=== PATIENT | male | born 1960 | race Caucasian/White ===

== ENCOUNTER 2023-11-08 08:49 | Outpatient (AMB) | payer MEDICARE, OTHER, SELFPAY ==
--- NOTE | 2023-11-08 09:00 | A.OFFVIS_ITS ---
Intake Vital Signs 11/08/23 09:17 Height 5 ft 9 in Weight 263 lb BMI 38.8 BP 140/80 H Blood Pressure Location Lt brachial Position Sitting Pulse 69 Pulse Source Pulse Oximeter Pulse Oximetry (%) 97 Oxygen Delivery Method Room Air Intake Visit Reasons: ENP-LORRAINE/Snoring/day time fatigue Intake Note: Patient presents for LORRAINE. not been able to sleep all night Allergies No Known Allergies Allergy (Verified 11/08/23 09:07) HPI HPI Comments History of Present Illness Details 62 y/o male patient presents for new in- person visit for sleep consultation. Pt reports difficulty falling asleep and staying sleep, only can sleep 4 hrs. Pt also reports loud snoring, and difficulty breathing, and nocturia. He had a nasal surgery, but not sure what he had done. Since the surgery, he has difficulty breathing when he sleep. He can breathe better when he laying on his left side. He quit smoking 6 years ago. Sleep questionnaire: Have you ever been diagnosed with a sleep disorder? No. Have you ever had a sleep study in the past? No. Have you ever been treated for a sleep disorder? No. Do you take medications for a sleep disorder? Trazodone 150 mg, but not use every night. Do you snore? Yes. Do you wake up gasping at night? No. Do you have episodes of apneas? Don't know. If yes, are they witnessed? No, sleeps alone. Do you have episodes of nocturnal chest pain or dyspnea?No. Do you have difficulty initiating sleep? Yes. Do you have difficulty maintaining sleep? Yes. Do you wake up tired? Always. Do you have headaches upon awakening? No. Do you wake up with dry mouth or throat? Yes. Do you have GERD? No. Do you have nocturia? Yes, 4-5 times at night. Do you have nocturnal leg cramps? Yes. Do you have symptoms of restless legs? Yes. Do you act out your dreams? No. Sleep hygiene questionnaire: What is your usual sleep routine? Very irregular. Usual bedtime is at ; Usual wake up time is at . Do you take naps? Yes. Is your sleep environment cool, dark, and quiet? Yes. Do you exercise? No. Do you take caffeine or other stimulants? 3 cups of coffee in the morning. Do you use electronics in bed? No. What is your work schedule? Retired. Hypersomnolence questionnaire: Do you have daytime tiredness or fatigue? Yes. Do you easily fall asleep when inactive? Yes. Have you ever had episodes of sudden weakness? No. Have you ever had episodes of sudden weakness associated with strong emotions? No. PFSH Surgical History (Updated 11/08/23 @ 09:15 by Chelsea Howell CMA) Previous back surgery Family History (Updated 11/08/23 @ 09:54 by Chelsea Howell CMA) Father Heart disease Mother Cancer of lung Brother Overdose Social History (Updated 11/08/23 @ 09:56 by Chelsea Howell CMA) Household Members: None Housing: Apartment Alcohol intake: current Comment: 1x a month Patient Tobacco Use Status: Former Tobacco user Years Smoked: 30 years Review of Systems Const All systems reviewed & are unremarkable except as noted in HPI and below Physical Exam Vital Signs: Last Vital Signs Pulse 69 11/08/23 09:17 BP 140/80 H 11/08/23 09:17 Pulse Ox 97 11/08/23 09:17 Oxygen Delivery Method Room Air 11/08/23 09:17 BMI result Body Mass Index 38.8 Const General: cooperative Nutritional Appearance: obese Orientation/consciousness: patient oriented x3 Neck Neck: Yes full ROM and Yes supple Resp Effort & Inspection: normal respiratory effort and able to speak in complete sentences Neuro General: patient oriented x3, gait normal and moves all extremities Cranial nerves: Yes CN's II-XII intact bilaterally Gait exam (Neuro): Normal gait present Motor exam (neuro): 5/5 motor strength present throughout Psych Appearance: grossly normal Mental Status: mental status grossly normal Affect: normal affect Attitude: cooperative Assessment & Plan Assessment & Plan (1) Loud snoring: Code(s): R06.83 - Snoring (2) Daytime sleepiness: Code(s): R40.0 - Somnolence Plan Pt is advised to undergo home sleep study to assess for sleep apnea. Will f/u with pt after study to discuss results and appropriate treatment options. Sleep hygiene education provided, having routine sleep schedule and also increase daily physical activities. Pt to call with any worsening concerns or questions. Orders: Orders RT home sleep study 11/08/23 R06.83 - Snoring, R40.0 - Somnolence Coding Level of Care Code New Pt Level 3 (29146) Diagnoses Loud snoring R06.83 Daytime sleepiness R40.0
[2023-11-08 09:17] VITALS: BP 140/80; PULSE 69; O2SAT 97; BMI 38.8
== END 2023-11-08 09:40 | disposition home or self-care (01) ==
PROVIDERS: PCP Physician Assistant Medical; Visit Provider Nurse Practitioner Family
DX: R06.83 Snoring (principal); R40.0 Somnolence
CPT/HCPCS: 99203

== ENCOUNTER → 2023-11-08 08:49 | Outpatient (BNVA) | payer MEDICARE, OTHER, SELFPAY | PROVIDERS: PCP Physician Assistant Medical; Visit Provider Nurse Practitioner Family | DX: R06.83 Snoring (principal); R40.0 Somnolence | CPT/HCPCS: 99202 ==

== ENCOUNTER → 2023-12-18 07:33 | Outpatient (REF) | payer MEDICARE, OTHER, SELFPAY | LOC: HO.SL 07:33 | PROVIDERS: PCP Physician Assistant Medical; Visit Provider Nurse Practitioner Family | DX: G47.33 Obstructive sleep apnea (adult) (pediatric) (principal); R06.83 Snoring; R40.0 Somnolence | CPT/HCPCS: 95806 ==

== ENCOUNTER → 2023-12-18 08:02 | Outpatient (BNV) | payer MEDICARE, OTHER, SELFPAY | PROVIDERS: PCP Physician Assistant Medical; Visit Provider Psychiatry & Neurology Neurology | DX: G47.33 Obstructive sleep apnea (adult) (pediatric) (principal) | CPT/HCPCS: 95806 ==

== ENCOUNTER 2024-05-20 09:22 | Outpatient (AMB) | payer MEDICARE, OTHER, SELFPAY ==
[2024-05-20 09:32] VITALS: BMI 35.9
--- NOTE | 2024-05-20 09:32 | MHC.OFFVIS ---
Vital Signs 05/20/24 09:32 Height 5 ft 9 in Weight 243 lb BMI 35.9 Intake Visit Reasons: F/u LORRAINE/Snoring/day time fatigue Intake Note: Patient presents for follow up LORRAINE. Allergies No Known Allergies Allergy (Verified 05/20/24 09:34) HPI Comments Details: 63-yr-old male presents for follow-up visit of sleep apnea. Pt denies any significant interval medical history changes. Pt underwent HST which showed mild LORRAINE, predominantly hypopneas, w/ AHI 10/hr, O2 colten 82% w/ SpO2 < 90% x's 27.5 min (10% of study) and < 88% x's 9 min, and average SpO2 91%. An order was placed for APAP, howveer pt did not start PAP tx and does not want to. States he is no longer having sleeping difficulties or nocturia, since he resumed marijuana use qhs, which he purchases from a dispensary. He denies SOB, usual cough, wheezing, allegries. He stopped smoking cigarettes 6 yrs ago. [facility] Surgical History Previous back surgery Family History Father Heart disease Mother Cancer of lung Brother Overdose Social History Household Members: None Housing: Apartment Alcohol intake: current Comment: 1x a month Patient Tobacco Use Status: Former Tobacco user Years Smoked: 30 years Review of Systems Const All systems reviewed & are unremarkable except as noted in HPI and below Physical Exam Vital Signs: BMI result Body Mass Index 35.9 Const General: no acute distress Orientation/consciousness: patient oriented x3 HEENT Other: Mallampati stage Resp Effort & Inspection: normal respiratory effort and able to speak in complete sentences Auscultation: clear to auscultation bilaterally Cardio Rate: regular rate Rhythm: regular rhythm Heart sounds: S1 normal heart sound present and S2 normal heart sound present Neuro General: patient oriented x3 Cranial nerves: Yes CN's II-XII intact bilaterally Motor exam (neuro): 5/5 motor strength present throughout Psych Mental Status: mental status grossly normal Speech and movement: Clear speech present Attitude: cooperative Results Reviewed Results Reviewed: PAP compliance report- see HPI Assessment & Plan Assessment & Plan (1) Mild obstructive sleep apnea: Code(s): G47.33 - Obstructive sleep apnea (adult) (pediatric) Category: Medical (2) Nocturnal hypoxemia: Code(s): G47.34 - Idiopathic sleep related nonobstructive alveolar hypoventilation Category: Medical Plan Reviewed HST results w/ pt. Mild LORRAINE, predominantly hypopnic w/ low end average SpO2 at 91% and < 90% x's 10 % of study time. Mild LORRAINE does not necessarily require PAP tx, thus will hold PAP order for now. Pt denies any current resp s/s, however does havbe a h/o tobacco use and is currently smoking marijuana for sleep. Did discuss that we do not advise pt's to use marijuana as a sleep aide, however pt is doing well on his current regimen, so he may continue for now. Pt may benefit from a pulmonology consult, will defer this to pt's PCP. f/u here prn. Coding Level of Care Code Est Pt Level 4 (18600) Diagnoses Mild obstructive sleep apnea G47.33 Nocturnal hypoxemia G47.34
== END 2024-05-20 11:25 | disposition home or self-care (01) ==
PROVIDERS: PCP Physician Assistant Medical; Visit Provider Nurse Practitioner Family
DX: G47.33 Obstructive sleep apnea (adult) (pediatric) (principal); G47.34 Idiopathic sleep related nonobstructive alveolar hypoventilation
CPT/HCPCS: 99214

== ENCOUNTER → 2024-05-20 09:22 | Outpatient (BNVA) | payer MEDICARE, OTHER, SELFPAY | PROVIDERS: PCP Physician Assistant Medical; Visit Provider Nurse Practitioner Family ==